=== PATIENT | female | born 1980 | race Caucasian/White ===

== ENCOUNTER 2022-04-10 05:54 | Emergency (ER) | payer OTHER ==
[~2022-04-10] VITALS: Ht 167.6 cm; Wt 64.0 kg
[2022-04-10] MEDS ORDERED: KETOROLAC 15MG/ML VIAL (15MG/ML) IV ONE (06:30)
[2022-04-10 06:41] LABS: BASOPHILS % (AUTO) 0.5 % (0.0-5.0); EOSINOPHILS % (AUTO) 2.7 % (0.0-8.0); HEMATOCRIT 39.6 % (36-48); LYMPHOCYTES % (AUTO) 22.9 % (21.0-51.0); MEAN CORPUSCULAR HEMOGLOBIN 33.3 pg (27.0-33.0); MEAN CORPUSCULAR HGB CONC 35.9 g/dL (32.0-36.0); MONOCYTES % (AUTO) 10.2 % (3.0-13.0); NEUTROPHILS % (AUTO) 63.4 % (40.0-77.0); PLATELET COUNT (AUTO) 141 K/uL (130-400); RED BLOOD CELL COUNT(AUTO) 4.26 MIL/uL (4.00-5.50); RED CELL DISTRIBUTION WIDTH 11.8 % (11.0-15.5); WHITE BLOOD COUNT (AUTO) 6.6 K/uL (4.8-10.8)
[2022-04-10 06:53] LABS: ALBUMIN 3.5 g/dL (3.5-5.0); CREATININE 0.6 mg/dL (0.5-1.5); POTASSIUM 3.6 mmol/L (3.5-5.1); TOTAL PROTEIN, SERUM 6.6 g/dL (6.0-8.3)
[2022-04-10] MEDS ORDERED: IBUP-2070 PO (06:54)
[2022-04-10] MEDS ORDERED: CIPROFLOXACIN HCL 0.2%/HYDROCORT 1% 10 ML OTIC SUSP OTIC SCH (07:00)
[2022-04-10 07:47] VITALS: BP 130/91
== END 2022-04-10 07:39 | disposition home or self-care (01) ==
LOC: EDH 05:54
DX: H92.02 Otalgia, left ear (principal); I10 Essential (primary) hypertension; Z98.890 Other specified postprocedural states
CPT/HCPCS: 99284; 96374; 84484; 80053; 85025; 36415; 93005; J1885

== ENCOUNTER 2022-05-30 10:36 | Emergency (ER) | payer OTHER ==
[~2022-05-30] VITALS: Ht 167.6 cm; Wt 63.5 kg
[~2022-05-30 10:36] MED LIST: IBUP-2070 PO
[2022-05-30 10:43] VITALS: BP 155/92
[2022-05-30 11:09] LABS: BASOPHILS % (AUTO) 0.4 % (0.0-5.0); HEMATOCRIT 43.2 % (36-48); MEAN CORPUSCULAR HEMOGLOBIN 33.3 pg (27.0-33.0); MEAN CORPUSCULAR HGB CONC 35.6 g/dL (32.0-36.0); MEAN CORPUSCULAR VOLUME 93.5 fL (79-99); MONOCYTES % (AUTO) 10.2 % (3.0-13.0); PLATELET COUNT (AUTO) 164 K/uL (130-400); RED BLOOD CELL COUNT(AUTO) 4.62 MIL/uL (4.00-5.50); RED CELL DISTRIBUTION WIDTH 11.7 % (11.0-15.5); WHITE BLOOD COUNT (AUTO) 8.2 K/uL (4.8-10.8)
[2022-05-30 11:19] LABS: CREATININE 0.7 mg/dL (0.5-1.5); POTASSIUM 3.8 mmol/L (3.5-5.1)
[2022-05-30 11:28] LABS: TOTAL PROTEIN, SERUM 7.5 g/dL (6.0-8.3)
[2022-05-30] MEDS ORDERED: LORAZEPAM 1 MG TABLET PO ONE (11:30)
[2022-05-30 12:24] LABS: APPEARANCE,URINE CLOUDY (CLEAR); BILIRUBIN,URINE NEGATIVE (NEGATIVE); COLOR,URINE LIGHT-YELLOW (YELLOW); GLUCOSE, URINE (UA) NEGATIVE (NEGATIVE); KETONES,URINE NEGATIVE (NEGATIVE); LEUKOCYTE ESTERASE ,URINE NEGATIVE Leu/uL (NEGATIVE); NITRATE,URINE NEGATIVE (NEGATIVE); OCCULT BLOOD,URINE NEGATIVE (NEGATIVE); PH,URINE 7.5 (5.0-8.0); PROTEIN,URINE NEGATIVE (NEGATIVE); UROBILINOGEN,URINE 0.2 mg/dL (0.2-1.0)
[2022-05-30 12:43] LABS: HCG,QUALITATIVE URINE NEGATIVE (NEGATIVE)
[2022-05-30 12:44] LABS: BACTERIA,URINE RARE /HPF (None Seen); MUCUS,URINE RARE LPF (None Seen); RBC,URINE 0-1 /HPF (0-1); SQUAMOUS EPITHELIAL CELL,UR MOD /HPF (0-2); WBC,URINE 0-1 /HPF (0-1)
== END 2022-05-30 13:52 | disposition home or self-care (01) ==
LOC: EDH 10:36
DX: F41.9 Anxiety disorder, unspecified (principal); I10 Essential (primary) hypertension; Z98.890 Other specified postprocedural states
CPT/HCPCS: 36415; 80053; 81001; 81025; 84484; 85025; 93005

== ENCOUNTER 2024-12-08 08:06 | Emergency (ER) | payer MEDICAID ==
[~2024-12-08] VITALS: Ht 167.6 cm; Wt 68.0 kg
[~2024-12-08 08:06] MED LIST changes: +IBUP-1492 PO; -IBUP-2070 PO
--- NOTE | 2024-12-08 08:58 | ERN ---
General Chief Complaint: Headache Stated Complaint: HEADACHE X 10 DAYS Time Seen by MD: 08:26 History of Present Illness Initial Comments This is a 44 year old female who presented with headache and multiple joint pain. She complains of headache 3/10 of intensity, which is band like and gives some pressure sensation. In addition to that she complains of multiple joint pains that involves hands, knee and ankles. She recently moved here from [place] (2 months back) and doesn't take the prescribed medications like amlodipine for HTN, chlordiazepoxide for alcohol withdrawal and Prozac for depression. No history of fever, chills, any recent trauma, photophobia. Allergies: Coded Allergies: No Known Allergies (Unverified Allergy, Unknown, 04/10/22) Home Meds Active Scripts Amlodipine Besylate (Norvasc) 10 Mg Tablet, 1 TAB PO DAILY for 30 Days, #30 TAB 0 Refills Prov:SIMON MICHAEL MD 12/08/24 Ibuprofen (Ibuprofen) 600 Mg Tablet, 1 TAB PO TID for pain for 10 Days, #30 TAB 0 Refills with food Prov:SIMON MICHAEL MD 12/08/24 Ibuprofen (Ibuprofen) 600 Mg Tablet, 600 MG PO Q6H PRN for PAIN, #30 TAB Prov:ALEXANDER CANALES MD 04/10/22 Past Medical History Past Medical History: Alcoholism, Anxiety, Hypertension Past Surgical History: Surgical History Other: PROSTHETIC EYE RIGHT Social History Social History: Negative, Lives with family Female( History) History: Not Applicable LMP: Dec 03, 2024 ROS Dictation REVIEW OF SYSTEMS CONSTITUTIONAL: No fever, chills, or night sweats. NEUROLOGICAL: Complains of 2/10 headache, band like in nature. No sensory and motor deficit. CARDIOVASCULAR: Denies any exertional angina, dyspnea on exertion, orthopnea, paroxysmal nocturnal dyspnea, palpitations. PULMONARY: Denies any shortness of breath, cough, phlegm/sputum, hemoptysis, pleuritic chest pain. GASTROINTESTINAL: Denies nausea, vomiting, constipation. Has 3-4 loose stools per day. GENITOURINARY: Denies frequency, urgency, nocturia, hematuria or incontinence. Physical Exam Physical Exam Dictation PHYSICAL EXAM GENERAL APPEARANCE: The patient is alert, awake and oriented and bedbound. NEUROLOGICAL: No sensory and motor deficits. CHEST: Normal chest expansion. LUNGS: Normal vesicular breath sound. Absence of any rales, rhonchi or any wheezing. CARDIOVASCULAR: Regular. S1 and S2 normal. No appreciable rubs, murmurs or gallops. ABDOMEN: Denies tenderness, guarding and rigidity. GENITOURINARY: No suprapubic tenderness. No costovertebral angle tenderness. MUSCULOSKELETAL: Has joint pain and tenderness on hands and knees. Results Laboratory and Microbiology Lab and Micro Result Laboratory Tests Test 12/08/24 09:09 12/08/24 09:10 White Blood Count 4.9 K/uL (4.8-10.8) Red Blood Count 4.22 MIL/uL (4.00-5.50) Hemoglobin 14.5 g/dL (12.0-16.0) Hematocrit 42.3 % (36-48) Mean Corpuscular Volume 100.2 fL (79-99) H Mean Corpuscular Hemoglobin 34.4 pg (27.0-33.0) H Mean Corpuscular Hemoglobin Concent 34.3 g/dL (32.0-36.0) Red Cell Distribution Width 11.9 % (11.0-15.5) Platelet Count 161 K/uL (130-400) Mean Platelet Volume 8.9 fL (7.5-10.5) Nucleated Red Blood Cells 0.0 % (0.0-0.19) Erythrocyte Sedimentation Rate 2 MM/HR (0-20) Sodium Level 136 mmol/L (136-145) Potassium Level 3.9 mmol/L (3.5-5.1) Chloride Level 100 mmol/L (101-111) L Carbon Dioxide Level 29 mmol/L (21-32) Blood Urea Nitrogen 11 mg/dL (7-18) Creatinine 0.7 mg/dL (0.5-1.0) Glomerular Filtration Rate Calc 110 mL/min (>90) Random Glucose 118 mg/dL (70-105) H Total Calcium 8.1 mg/dL (8.5-10.1) L Total Bilirubin 0.4 mg/dL (0.2-1.0) Aspartate Amino Transf (AST/SGOT) 35 U/L (10-37) Alanine Aminotransferase (ALT/SGPT) 37 U/L (12-78) Alkaline Phosphatase 98 U/L (50-136) C-Reactive Protein, Quantitative 0.70 mg/L (0.5-3.0) Total Protein 7.4 g/dL (6.0-8.3) Albumin 3.7 g/dL (3.5-5.0) Urine Color LIGHT-YELLOW (YELLOW) Urine Appearance CLEAR (CLEAR) Urine pH 5.0 (5.0-8.0) Urine Specific [place] 1.008 (1.001-1.031) Urine Protein NEGATIVE mg/dL (NEGATIVE) Urine Glucose (UA) NEGATIVE mg/dL (NEGATIVE) Urine Ketones NEGATIVE mg/dL (NEGATIVE) Urine Occult Blood NEGATIVE (NEGATIVE) Urine Nitrate NEGATIVE (NEGATIVE) Urine Bilirubin NEGATIVE mg/dL (NEGATIVE) Urine Urobilinogen 0.2 mg/dL (0.2-1.0) Urine Leukocyte Esterase NEGATIVE Dimple/uL Urine HCG, Qualitative NEGATIVE (NEGATIVE) MDM The patient presents with headache and arthralgia without focal neurological deficit. No red flag features such as altered mental status, focal weakness, sudden onset thunderclap headache or meningeal signs. Vital signs stable. No rash, joint swelling or synovitis on examination. CBC and CMP were unremarkable. ESR and CRP within normal limits. ED treatment: She was managed with Toradol 15mg once IV in the ED. * She is currently stable, labs unremarkable and no alarming findings: Advised rest, hydration and symptomatic medications. * Follow with PCP in 2-3 days. ED Course Orders Procedure Category Date Status Time Cbc Without LAB 12/08/24 Complete Differential 08:58 Comprehensive LAB 12/08/24 Complete Metabolic Panel 08:58 Erythrocyte Sed Rate LAB 12/08/24 Complete 08:58 Crp Quantitative LAB 12/08/24 Complete 08:58 Ketorolac PHA 12/08/24 Complete Tromethamine 15mg/Ml 09:00 Urinalysis Profile LAB 12/08/24 Complete 09:03 ,Urine Test LAB 12/08/24 Complete 09:03 Current Medications Medications (Trade) Dose Ordered Sig/Preet Route PRN Reason Start Time Stop Time Status Last Admin Dose Admin Ketorolac Tromethamine (toRADol) 15 mg ONCE ONCE IV 12/08/24 09:00 12/08/24 09:02 DC 12/08/24 09:37 Vital Signs Date Time Temp Pulse Resp B/P (MAP) Pulse Ox O2 Delivery O2 Flow Rate FiO2 12/08/24 10:51 98.2 73 16 115/78 98 Room Air* 0 21 12/08/24 09:40 98.2 66 17 118/76 99 Room Air* 0 21 12/08/24 08:07 98.1 82 16 127/93 97 Room Air 0 DX & DISP Disposition: Discharge Departure Impression: Primary Impression: Anxiety Additional Impressions: Joint pain, Headache, Hypertension Condition: Stable Scripts Amlodipine Besylate (Norvasc) 10 Mg Tablet 1 TAB PO DAILY for 30 Days, #30 TAB 0 Refills Prov: SIMON MICHAEL MD 12/08/24 Ibuprofen (Ibuprofen) 600 Mg Tablet 1 TAB PO TID for pain for 10 Days, #30 TAB 0 Refills with food Prov: SIMON MICHAEL MD 12/08/24 Additional Instructions: Continue prescribed medication as recommended. Follow up with PCP in 2-3 days. Come to ED or call 911 if you develop severe headache, altered mental status and severe joint pain. Referrals: SELF,REFERRAL (PCP) Dr. Isma Fajardo DO I performed a substantive portion of the visit. I have reviewed and personally made and approve the management plan that is documented in the notes by myself with HANH/resident. I acknowledged full responsibility for the patient's management plan. SIMON MICHAEL MD Dec 08, 2024 08:58 ISMA FAJARDO DO Dec 08, 2024 17:50
[2024-12-08 09:13] LABS: NUCLEATED RED BLOOD CELLS 0.0 % (0.0-0.19); PLATELET COUNT (AUTO) 161.0 K/uL (130-400); RED BLOOD CELL COUNT(AUTO) 4.22 MIL/uL (4.00-5.50); RED CELL DISTRIBUTION WIDTH 11.9 % (11.0-15.5); WHITE BLOOD COUNT (AUTO) 4.9 K/uL (4.8-10.8)
[2024-12-08 09:32] LABS: ASPARTATE AMINOTRANSFERASE 35.0 U/L (10-37); CREATININE 0.7 mg/dL (0.5-1.0); GLOMERULAR FILTR. RATE CALC 110.0 mL/min (>90); GLUCOSE,RANDOM 118.0 mg/dL (70-105); SODIUM SERUM 136.0 mmol/L (136-145); TOTAL PROTEIN, SERUM 7.4 g/dL (6.0-8.3); UREA NITROGEN, BLOOD 11.0 mg/dL (7-18)
[2024-12-08 09:37] LABS: APPEARANCE,URINE CLEAR (CLEAR); GLUCOSE, URINE (UA) NEGATIVE (NEGATIVE); HCG,QUALITATIVE URINE NEGATIVE (NEGATIVE); LEUKOCYTE ESTERASE ,URINE NEGATIVE Leu/uL (NEGATIVE); NITRATE,URINE NEGATIVE (NEGATIVE); OCCULT BLOOD,URINE NEGATIVE (NEGATIVE)
[2024-12-08 10:03] LABS: ADD UA MICROSCOPIC NO
[2024-12-08 10:18] LABS: ERYTHROCYTE SEDIMENTATION RATE 2.0 MM/HR (0-20)
[2024-12-08] MEDS ORDERED: IBUP-1492 PO (10:41)
[2024-12-08] MEDS ORDERED: AMLO-915 PO (10:41)
[2024-12-08 10:51] VITALS: BP 115/78; PULSE 73; RESP 16; TEMP 98.2; O2SAT 98
--- NOTE | 2024-12-08 11:00 | NUR ---
PT AAOX4, PT STABLE NO DISTRESS VITALS WNL NO C/O PAIN NOW, IV REMOVED CATHETER INTACT, PT DROVE HERSELF HOME.
== END 2024-12-08 11:02 | disposition home or self-care (01) ==
LOC: EDH 08:06
DX: F41.9 Anxiety disorder, unspecified (principal); R51.9 Headache, unspecified; I10 Essential (primary) hypertension; F10.20 Alcohol dependence, uncomplicated; Z79.899 Other long term (current) drug therapy; Z79.1 Long term (current) use of non-steroidal anti-inflammatories (NSAID); Z97.0 Presence of artificial eye; Y90.9 Presence of alcohol in blood, level not specified
CPT/HCPCS: 99284; 96374; 80053; 85027; 85651; 86140; 81003; 81025; 36415; J1885